=== PATIENT | female | born 1985 | race African-American/Black ===

== ENCOUNTER 2023-06-17 20:25 | Inpatient (IN) | payer OTHER, SELFPAY ==
[2023-06-17] MEDS ORDERED: Magnesium 2 GM/50 ML BAG (IN WATER) ONE (21:28)
[2023-06-17] MEDS ORDERED: Dexamethasone 10 MG/ML VIAL ONE (21:28)
[2023-06-17 21:59] LABS: BHCG - Serum Negative (NEGATIVE); Pregs Control Bar Appear? YES (CONTROL BAR)
[2023-06-17 22:00] LABS: Pregs Control Background? CLEAR/WHITE (CLR/WHITE)
[2023-06-17 22:04] LABS: Bilirubin Neg (Negative); Blood, Urine Negative (Negative); Clarity Clear (Clear); Glucose, Urine (Dipstick) Normal (Negative); Ketone, Urine Negative (Negative); Leukocyte Negative (Negative); Nitrite Negative (Negative); Protein, Urine (Dipstick) 30 mg/dl (Neg-Trace)
[2023-06-17 22:07] LABS: ALT (SGPT) 9 U/L (8-55); AST (SGOT) 17 U/L (5-34); Acetaminophen Less than 10 mcg/mL (10.0-30.0); Albumin 3.6 g/dL (3.5-5.0); Alcohol Less than 10.0 mg/dL (Less than 10); Alkaline Phosphatase 46 U/L (40-110); Anion Gap 13 mmol/L (10-20); BUN (Urea Nitrogen) 19 mg/dL (7.0-18.7); Bilirubin, Total 0.3 mg/dL (0.2-1.2); CK (CPK) 57 U/L (29-168); Calc. Creatinine Clearance 0 mL/min (70-130); Calcium 8.7 mg/dL (7.8-10.44); Carbon Dioxide 21 mmol/L (22-29); Chloride 108 mmol/L (98-107); Estimated GFR 56; Globulin 3.2 g/dL (2.4-3.5); Glucose 97 mg/dL (70-105); Lipase 28 U/L (8-78); Potassium 3.3 mmol/L (3.5-5.1); Protein, Total 6.8 g/dL (6.0-8.3); Salicylate Less than 8.0 mg/dL (15.0-30.0); Sodium 139 mmol/L (136-145)
[2023-06-17 22:10] LABS: Troponin I 0.036 ng/mL (< 0.028)
[2023-06-17 22:12] LABS: Amphetamine Detected (NotDetected); Barbiturates Screen Not Detected (NotDetected); Benzodiazepine Screen Not Detected (NotDetected); Cocaine Metabolite Screen Not Detected (NotDetected); Methadone Not Detected (NotDetected); Methamphetamine Detected (NotDetected); Opiate Screen Detected (NotDetected); Oxycodone Screen Not Detected (NotDetected); Phencyclidine (PCP) Not Detected (NotDetected); THC/Cannabinoid Screen Detected (NotDetected); Tricyclic Screen Not Detected (NotDetected)
[2023-06-17] MEDS ORDERED: Albuterol 2.5 MG (3 mL) NEB ONE (22:25)
[2023-06-17] MEDS ORDERED: Ipratropium/Albuterol 3 ML NEB ONE (22:26)
[2023-06-17 22:28] LABS: Bacteria/HPF None Seen HPF (None Seen); CAUTI Indications for Culture Pelvic or flank pain; RBC/HPF 0-3 HPF (0-3); WBC/HPF 0-3 HPF (0-3)
[2023-06-17 22:30] LABS: #Eosinphils 0.1 10x3/uL (0.0-0.5); #Monocytes 0.4 10x3/uL (0.0-1.1); #Neutrophils 5.8 10x3/uL (1.5-8.4); %Basophils 0.3 % (0.0-2.0); %Eosinophils 1.4 % (0.0-6.0); %Lymphocytes 19.2 % (18.0-47.0); %Monocytes 5.3 % (0.0-10.0); %Neutrophils 73.5 % (40.0-75.0); Hematocrit 33.8 % (34.9-44.5); Hemoglobin 10.7 g/dL (12.0-15.5); Mean Corpuscular HGB CONC 31.7 g/dL (32.0-36.0); Mean Corpuscular Hemoglobin 23.5 pg (27.0-33.0); Mean Corpuscular Volume 74.1 fl (81.6-98.3); Mean Platelet Volume 10.9 fl (7.4-10.4); Platelet Count 213 10x3/uL (150-450); RBC Distribution Width 17.4 % (11.5-14.5); Red Blood Cell (RBC) Count 4.56 10x6/uL (3.90-5.03); White Blood Cell (WBC) Count 7.9 10x3/uL (3.5-10.5)
[2023-06-17 22:30] LABS: Urine Culture Reflex No No
[2023-06-17 22:33] LABS: Anisocytosis SLIGHT = 6-15 cells (100X) (0-5/hpf); Hypochromia SLIGHT = 6-15 cells (100X) (0-5/hpf); Macrocytosis SLIGHT = 6-15 cells (100X) (0-5/hpf); Microcytosis SLIGHT = 6-15 cells (100X) (0-5/hpf); Ovalocytes SLIGHT = 2-5 cells (100X) (0-1/hpf); Schistocytes SLIGHT = 2-5 cells (100X) (0-1/hpf)
[2023-06-17 22:34] LABS: Platelet Adequacy Comment Appears Adequate
[2023-06-17 22:37] LABS: Influenza A by NAA Not Detected (NotDetected); Influenza B by NAA Not Detected (NotDetected); SARS-CoV-2 NAA Rapid Test Not Detected (NotDetected)
[2023-06-17] MEDS ORDERED: Nitroglycerin 0.4 MG TAB 1 EACH ONE (22:49)
[2023-06-17] MEDS ORDERED: Morphine 4 MG/ML VIAL ONE (22:51)
[2023-06-18] MEDS ORDERED: Nitroglycerin 50 MG/250 ML BOT 250 ML ONE (00:30)
[2023-06-18] MEDS ORDERED: Ondansetron PF 4 MG/2 ML Vial IVP PRN (01:17)
[2023-06-18] MEDS ORDERED: Furosemide 40 MG (4 mL) VIAL ONE (01:25)
[2023-06-18] MEDS ORDERED: niCARdipine 25 MG/10 ML SDV ONE (01:26)
[2023-06-18] MEDS ORDERED: Potassium Chloride 20 MEQ (100 mL) BAG ONE ×2 (01:26→04:49)
[2023-06-18 01:34] LABS: Troponin I 0.036 ng/mL (< 0.028)
[2023-06-18 01:36] LABS: Magnesium 2.3 mg/dL (1.6-2.6)
[2023-06-18] MEDS: Furosemide 40 MG (4 mL) VIAL SLOW IVP SCH (02:26)
[2023-06-18] MEDS: Potassium Chloride 20 MEQ in Premix 1 BAG IVPB SCH (02:26)
[2023-06-18] MEDS: niCARdipine 25 MG in Sodium Chloride 0.9% 250 ML 250 ML IVPB SCH (02:26)
[2023-06-18] MEDS: Nitroglycerin 50 MG/250 ML BOT 250 ML IVPB SCH (02:26)
[2023-06-18] MEDS ORDERED: Aspirin Chewable 81 MG TAB ONE (02:52)
[2023-06-18] MEDS: Aspirin Chewable 81 MG TAB PO SCH (03:00)
[2023-06-18] MEDS ORDERED: Acetaminophen 325 MG TAB ONE ×2 (03:09→07:07)
[2023-06-18] MEDS: Acetaminophen 325 MG TAB PO PRN (03:13)
[2023-06-18] MEDS: Nicotine 21 MG PATCH TD SCH (03:17)
[2023-06-18 03:58] LABS: Anion Gap 15 mmol/L (10-20); BUN (Urea Nitrogen) 18 mg/dL (7.0-18.7); Calc. Creatinine Clearance 0 mL/min (70-130); Calcium 8.5 mg/dL (7.8-10.44); Carbon Dioxide 20 mmol/L (22-29); Chloride 106 mmol/L (98-107); Estimated GFR 59; Glucose 133 mg/dL (70-105); Sodium 137 mmol/L (136-145)
[2023-06-18 04:05] LABS: Troponin I 0.019 ng/mL (< 0.028)
[2023-06-18 04:12] LABS: #Monocytes 0.1 10x3/uL (0.0-1.1); #Neutrophils 8.6 10x3/uL (1.5-8.4); %Basophils 0.1 % (0.0-2.0); %Eosinophils 0.1 % (0.0-6.0); %Lymphocytes 5.4 % (18.0-47.0); %Monocytes 1.5 % (0.0-10.0); %Neutrophils 92.6 % (40.0-75.0); Hematocrit 35.3 % (34.9-44.5); Hemoglobin 10.8 g/dL (12.0-15.5); Mean Corpuscular HGB CONC 30.6 g/dL (32.0-36.0); Mean Corpuscular Hemoglobin 23.1 pg (27.0-33.0); Mean Corpuscular Volume 75.4 fl (81.6-98.3); Mean Platelet Volume 10.8 fl (7.4-10.4); Platelet Count 214 10x3/uL (150-450); RBC Distribution Width 17.3 % (11.5-14.5); Red Blood Cell (RBC) Count 4.68 10x6/uL (3.90-5.03); White Blood Cell (WBC) Count 9.3 10x3/uL (3.5-10.5)
[2023-06-18] MEDS: Aspirin 81 mg Enteric Coated Tablet PO SCH (07:27)
[2023-06-18] MEDS ORDERED: Metoprolol Tartrate 25 MG TAB ONE (08:13)
[2023-06-18] MEDS ORDERED: Enoxaparin 40 MG (0.4 mL) SYRINGE ONE (08:13)
[2023-06-18] MEDS ORDERED: Pantoprazole 40 MG VIAL ONE (08:14)
[2023-06-18] MEDS ORDERED: Amlodipine 5 MG TAB ONE (08:14)
[2023-06-18] MEDS: Amlodipine 10 MG TAB PO SCH (08:22)
[2023-06-18] MEDS: Enoxaparin 40 MG (0.4 mL) SYRINGE SC SCH (08:22)
[2023-06-18] MEDS: Pantoprazole 40 MG VIAL IVP SCH (08:23)
[2023-06-18] MEDS: Metoprolol Tartrate 25 MG TAB PO SCH (08:23)
[2023-06-18] MEDS ORDERED: HYDROcodone/Acetaminophen 5/325 mg Tablet ONE (09:20)
[2023-06-18] MEDS: HYDROcodone/Acetaminophen 5/325 mg Tablet PO PRN (09:22)
[2023-06-18] MEDS: Ipratropium/Albuterol 3 ML NEB NEB SCH (14:00)
[2023-06-18] MEDS ORDERED: Potassium Chloride 20 MEQ TAB ONE (14:19)
[2023-06-18] MEDS ORDERED: Furosemide 40 MG TAB ONE (14:19)
[2023-06-18] MEDS ORDERED: Losartan 25 MG TAB ONE (14:20)
[2023-06-18] MEDS: Losartan 25 MG TAB PO SCH (14:29)
[2023-06-18] MEDS: Furosemide 40 MG TAB PO SCH (14:29)
[2023-06-18] MEDS: Potassium Chloride 20 MEQ TAB PO SCH (14:30)
[2023-06-18] MEDS ORDERED: Ipratropium/Albuterol 3 ML NEB ONE (14:46)
[2023-06-18] MEDS: Carvedilol 12.5 MG TAB PO SCH (16:32)
[2023-06-18] MEDS: Labetalol HCl 100 MG/20 ML VIAL SLOW IVP PRN (16:32)
[2023-06-18] MEDS: hydrALAZINE 20 MG/ML VIAL SLOW IVP PRN (16:32)
[2023-06-18 16:48] VITALS: BMI 27.4
[2023-06-18] MEDS: Carvedilol 25 MG TAB PO SCH (21:08)
[2023-06-18] MEDS: QUEtiapine 25 MG TAB PO SCH (22:53)
[2023-06-19 05:26] LABS: Troponin I 0.024 ng/mL (< 0.028)
[2023-06-19] MEDS ORDERED: Losartan 25 MG TAB PO SCH (09:00)
[2023-06-19] MEDS: Carvedilol 25 MG TAB PO SCH (09:20)
[2023-06-19] MEDS: Furosemide 20 MG TAB PO SCH (09:21)
[2023-06-19] MEDS: Valsartan 80 MG TAB PO SCH (09:21)
[2023-06-19] MEDS: Doxepin HCl 10 MG CAP PO PRN (21:23)
[2023-06-19] MEDS: Morphine 4 MG/ML VIAL SLOW IVP SCH (22:57)
[2023-06-19] MEDS: Lorazepam 2 MG/ML VIAL SLOW IVP SCH (22:58)
[2023-06-20 06:19] LABS: Anion Gap 12 mmol/L (10-20); BUN (Urea Nitrogen) 13 mg/dL (7.0-18.7); Calc. Creatinine Clearance 88 mL/min (70-130); Calcium 8.8 mg/dL (7.8-10.44); Carbon Dioxide 21 mmol/L (22-29); Chloride 105 mmol/L (98-107); Estimated GFR 73; Glucose 107 mg/dL (70-105); Potassium 3.6 mmol/L (3.5-5.1); Sodium 134 mmol/L (136-145)
[2023-06-20 07:39] VITALS: BP 144/93; TEMP 98.4
[2023-06-20] MEDS: Ferrous Sulfate 325 MG TAB PO SCH (09:23)
[2023-06-20] MEDS: busPIRone HCl 5 MG TAB PO SCH (11:09)
== END 2023-06-20 11:54 | disposition home or self-care (01) | DRG 291 ==
LOC: CSHERS 20:25 → CSHERHOLD 06-18 01:05 → CSHTELE 06-18 15:29
PROVIDERS: ADMIT Family Medicine; ATTEND Internal Medicine
PROC: 5A09457 Assistance with Respiratory Ventilation, 24-96 Consecutive Hours, Continuous Positive Airway Pressure (ICD-10-PCS; principal; 2023-06-18)
DX: I13.0 Hypertensive heart and chronic kidney disease with heart failure and stage 1 through stage 4 chronic kidney disease, or unspecified chronic kidney disease (principal); I50.33 Acute on chronic diastolic (congestive) heart failure; I16.1 Hypertensive emergency; I16.0 Hypertensive urgency; F17.210 Nicotine dependence, cigarettes, uncomplicated; F15.10 Other stimulant abuse, uncomplicated; D50.9 Iron deficiency anemia, unspecified; N18.31 Chronic kidney disease, stage 3a; F41.9 Anxiety disorder, unspecified; I12.9 Hypertensive chronic kidney disease with stage 1 through stage 4 chronic kidney disease, or unspecified chronic kidney disease; E87.6 Hypokalemia; Z91.148 Patient's other noncompliance with medication regimen for other reason; Z88.0 Allergy status to penicillin; Z79.899 Other long term (current) drug therapy; Z90.710 Acquired absence of both cervix and uterus; Z98.51 Tubal ligation status; Z98.890 Other specified postprocedural states; Z83.3 Family history of diabetes mellitus; Z82.49 Family history of ischemic heart disease and other diseases of the circulatory system; Z71.51 Drug abuse counseling and surveillance of drug abuser; Z71.6 Tobacco abuse counseling; Z11.52 Encounter for screening for COVID-19
CPT/HCPCS: 36415; 70450; 71045; 80048; 80053; 80306; 80307; 81001; 82550; 83690; 83735; 83880; 84484; 84703; 85025; 85379; 93005; 93306; 94640; 94644; 94660; 94760; 94762; 96374; 96375; C9113; J0360; J1100; J1650; J1940; J2060; J2270; J3475; J3480; J7050; J7611; J7620

== ENCOUNTER 2023-09-19 10:12 | Emergency (ER) | payer SELFPAY ==
[2023-09-19] MEDS ORDERED: Ketorolac Tromethamine 30 MG (1 mL) VIAL ONE (10:42)
[2023-09-19] MEDS ORDERED: Lorazepam 2 MG/ML VIAL ONE (10:42)
[2023-09-19] MEDS ORDERED: Morphine 4 MG/ML VIAL ONE (10:42)
== END 2023-09-19 12:39 | disposition home or self-care (01) ==
LOC: CSHERS 10:12
DX: S39.012A Strain of muscle, fascia and tendon of lower back, initial encounter (principal); I11.0 Hypertensive heart disease with heart failure; I50.9 Heart failure, unspecified; F17.210 Nicotine dependence, cigarettes, uncomplicated; X58.XXXA Exposure to other specified factors, initial encounter
CPT/HCPCS: 96372; 96374; 96375; J1885; J2060; J2270

== ENCOUNTER 2024-01-21 20:16 | Emergency (ER) | payer OTHER, SELFPAY | END 2024-01-21 20:55 | disposition home or self-care (01) | LOC: CSHERS 20:16 | DX: R20.2 Paresthesia of skin (principal); I11.0 Hypertensive heart disease with heart failure; I50.9 Heart failure, unspecified; F17.210 Nicotine dependence, cigarettes, uncomplicated; Z79.899 Other long term (current) drug therapy | CPT/HCPCS: 99282 ==